=== PATIENT | female | born 1955 | race Caucasian/White ===

== ENCOUNTER → 2019-05-24 | Outpatient (CLI) | payer MEDICARE | END | disposition home or self-care (01) | LOC: LABPAT 12:27 | PROVIDERS: ATTEND Orthopaedic Surgery | DX: Z01.812 Encounter for preprocedural laboratory examination (principal) | CPT/HCPCS: 36415; 86850; 86900; 86901; 87070 ==

== ENCOUNTER 2019-05-31 08:00 | Inpatient (IN) | payer MEDICARE ==
--- NOTE | 2019-05-30 09:29 | HP ---
HISTORY AND PHYSICAL CHIEF COMPLAINT: Left hip pain. HISTORY OF PRESENT ILLNESS: The patient is a 64-year-old female who presents with progressive left hip pain for the past several years. It has worsened after recent fall. She is having thigh and groin pain, worse with weightbearing activities. She notes it significantly limits her. She does use a walker. PAST MEDICAL HISTORY: Significant for hypertension, Crohn's, hypothyroidism, and osteopenia. PAST SURGICAL HISTORY: Significant for appendectomy, carpal tunnel release, hysterectomy, partial thyroidectomy, shoulder surgery, and tonsillectomy. CURRENT MEDICATIONS: 1. Amlodipine. 2. Dicyclomine. 3. Lasix. 4. Gemfibrozil. 5. Levothyroxine. 6. Lisinopril. 7. Sulindac. 8. Zantac. ALLERGIES: She denies drug allergies. FAMILY HISTORY: Significant for cancer. SOCIAL HISTORY: Negative for current tobacco or alcohol use. REVIEW OF SYSTEMS: Sixteen point review of systems otherwise reviewed and is noncontributory. PHYSICAL EXAMINATION: On examination, the patient is approximately 5 feet 4 inches, 179 pounds of endomorphic habitus. HEENT exam is nonfocal. Neck is supple. Passive motion left hip flexion 80 degrees, external rotation with hip flex 45 degrees, internal rotation is -10 degrees with pain. Her distal neurovascular exam appears intact in the left lower extremity. X-rays to include AP and lateral views of the left hip obtained in the office show severe osteoarthrosis with flattening of the femoral head. IMPRESSION: Left hip severe osteoarthrosis-symptomatic. RECOMMENDATIONS: I talked to the patient at length regarding her condition along with treatment options. At this point she is quite limited because of pain related to her left hip osteoarthrosis. After thorough discussion, she opts to proceed with surgery. We will plan to proceed with left total hip arthroplasty utilizing an anterior approach. We will institute DVT prophylaxis postoperatively. MMODL / IJN: [id number] /
[~2019-05-31 08:00] MED LIST: ACETAMINOPHEN TAB 500 MG TAB PO ONE; DEXAMETHASONE SOD PHOSPHATE 10 MG/ML 1 ML VIAL IV ONE; LIDOCAINE 1% 20 ML VIAL (10MG/ML) FOR IV START INTRADERMA PRN; MELOXICAM 7.5 MG TAB PO ONE; MIDAZOLAM 2 MG/2 ML VIAL IV PRN; ONDANSETRON 4 MG/2 ML VIAL IVP ONE; SCOPOLAMINE 1.5MG/72HR PATCH TRANSDERM ONE; TRANEXAMIC ACID 1,000 MG in SODIUM CHLORIDE 0.9% 100 ML IVPB ONE
[2019-05-31] MEDS: LACTATED RINGERS 1,000 ML IV SCH (11:27)
[2019-05-31] MEDS ORDERED: ACETAMINOPHEN TAB 500 MG TAB PO ONE (11:28)
[2019-05-31] MEDS ORDERED: MELOXICAM 7.5 MG TAB PO ONE (11:28)
[2019-05-31] MEDS ORDERED: DEXAMETHASONE SOD PHOSPHATE 10 MG/ML 1 ML VIAL IV ONE (11:29)
[2019-05-31] MEDS ORDERED: ONDANSETRON 4 MG/2 ML VIAL IVP ONE (11:31)
[2019-05-31] MEDS ORDERED: SODIUM CHLORIDE 0.9% IRRIG 1,000 ML BTL IRRIGATION ONE (12:18)
[2019-05-31] MEDS ORDERED: SODIUM CHLORIDE 0.9% 100 ML BAG ONE (12:18)
[2019-05-31] MEDS ORDERED: MIDAZOLAM 2 MG/2 ML VIAL ONE (12:18)
[2019-05-31] MEDS ORDERED: PROPOFOL 10 MG/ML 20 ML VIAL IV ONE (12:18)
[2019-05-31] MEDS ORDERED: HEPARIN SODIUM,PORCINE 10,000 UNIT/ML 1 ML VIAL ONE (12:18)
[2019-05-31] MEDS ORDERED: fentaNYL (PF) 50 MCG/ML 2 ML AMP ONE (12:18)
[2019-05-31] MEDS ORDERED: diphenhydrAMINE 50 MG/ML 1 ML VIAL ONE (12:18)
[2019-05-31] MEDS ORDERED: TRANEXAMIC ACID 1,000 MG/10 ML VIAL ONE (12:18)
[2019-05-31] MEDS ORDERED: ceFAZolin 3,000 MG in SODIUM CHLORIDE 0.9% IRRIGATIO 3,000 ML IRRIGATION ONE (13:03)
[2019-05-31] MEDS ORDERED: traMADol 50 MG TAB PO PRN (14:02)
[2019-05-31] MEDS ORDERED: ACETAMINOPHEN TAB 325 MG TAB PO PRN (14:02)
[2019-05-31] MEDS ORDERED: HYDROcodone/APAP 5-325MG 1 EACH TAB PO PRN (14:02)
[2019-05-31] MEDS ORDERED: MAGNESIUM HYDROXIDE 2,400 MG/10 ML CUP PO PRN (14:02)
[2019-05-31] MEDS ORDERED: ONDANSETRON 4 MG/2 ML VIAL IVP PRN (14:02)
[2019-05-31] MEDS ORDERED: HYDROmorphone 0.5 MG/0.5 ML SYRINGE IVP PRN (14:02)
[2019-05-31] MEDS ORDERED: NALOXONE 0.4 MG/ML 1 ML VIAL IV PRN (14:02)
[2019-05-31] MEDS ORDERED: LACTATED RINGERS 1,000 ML IV ONE (14:11)
--- NOTE | 2019-05-31 14:28 | P.OP ---
Date of Procedure: 05/31/19 Preoperative Diagnosis: Severe left hip osteoarthrosis Postoperative Diagnosis: Same Procedure(s) Performed: Left total hip arthroplastypress-fitanterior approach Implants: Depuy Corail size 9 pressfit standard collared femoral stem, 32 mm +1 cobalt chrome femoral head, 52 mm [place] acetabular shell with neutral polyethylene liner. Anesthesia: spinal Surgeon: Ryley Katz Animal Husbandman #1: Antonio Mckeon Estimated Blood Loss (ml): 200 Pathology: other (Femoral head) Condition: stable Disposition: PACU Indications for Procedure: The patient's a 64-year-old female who presents with progressive left hip pain secondary to osteoarthrosis despite conservative measures. A discussion of the risks and benefits of operative intervention versus continued conservative measures made with patient. She opted to proceed with surgery. Operative risks to include infection, neurovascular injury, development of blood clots, possible fracture, leg length discrepancy, possible instability, and possible need for subsequent procedures was discussed. Informed consent was obtained. Operative Findings: As below Description of Procedure: The patient was brought to the operating room, and after induction of spinal anesthesia was placed supine on the [place]al table. Positioning was checked with fluoroscopy. The left hip was then prepped and draped in a normal fashion. A 12 cm incision was then made starting 2 fingerbreadths distal and 3 finger breaths posterior to the ASIS in line with the proximal femur. The skin was incised sharply. Subcutaneous tissues were divided sharply. Electrocautery was used for hemostasis. The fascia was split in line with skin incision. The interval between the sartorius and tensor fascia gonsalo was then bluntly developed. The posterior fascia was opened with electrocautery. The lateral circumflex vessels were identified and cauterized prior to sectioning. A retractor was placed along the superior femoral neck as well as the anterior acetabular rim. A wide capsulotomy was performed. The neck cut was then made at a 45 angle to the shaft approximately 1 1/2 cm above the level of the lesser trochanter. The head was extracted. Attention was then paid towards preparing the acetabular. Anterior and posterior retractors were placed. The remaining capsular labral tissue sharply debrided clearly defining the acetabular margins. I began reaming with a 45 mm reamer taking care to initially medialize then reaming at 45 of abduction and 20 of anteversion. Sequential reaming is performed up to to 51 mm. A trial 52 mm acetabular shell was inserted in the same orientation and was fully seated. There was good rim fit and stability. Positioning was checked with fluoroscopy. The final [] mm acetabular shell was inserted again at 45 of abduction and 20 of anteversion. This was fully seated. There was good rim fit and stability. I did place a 6.5 mm x 25 mm posterior superior cancellus screw with good purchase. Again fluoroscopy was used to check the adequacy of placement. A neutral polyethylene liner was gently impacted. Care was taken to avoid any soft tissue interposition. Pulsatile lavage was utilized. Attention was then paid towards preparing the proximal femur. The central region was cleared of soft tissue. A canal finder was used to find the femoral canal. Sequential broaching was performed up to size 9 taking care to lateralize proximally. A calcar mill was used to fashion the medial calcar. There was good rotational stability. A standard neck along with a 32 mm +1 head was placed. The hip was gently reduced. Fluoroscopy was used to check the adequacy of positioning along with leg lengths. I felt both were good. The hip was gently dislocated. The trial components were removed. The final size 9 collared standard press- fit femoral stem was inserted parallel to the posterior cortex. This was fully seated and there was good rotational stability. A 32 mm +1 cobalt chrome head was placed. This was gently impacted. The hip was then gently reduced. Final fluoroscopic view showed adequate placement implant along with hoahaoism of leg length. Stability was checked with 80 of external rotation and 60 of extension of the right hip. The wound was irrigated with sterile lavage. The fascia was closed with running 0 Vicryl suture. There was minimal drainage therefore a deep drain was not placed. The second dose of IV TXA was given. The subcutaneous tissues were reapproximated interrupted 2-0 Vicryl sutures. The skin was reapproximated with 3-0 subcuticular strata fix suture. Skin tape and adhesive was applied. A sterile dressing was applied. The patient was then awoken from sedation and transferred to recovery room in good condition. Blood loss was estimated at 200 mL. She did receive 62 mL of Cell Saver. No complications were incurred. Sponge and needle counts were correct at the end of the case. Hector CHAUHAN assisted during the major components is case to include exposure, bone resection, implantation, and closure.
--- NOTE | 2019-05-31 14:31 | XR ---
EXAMINATION TYPE: XR Hip Limited LT, FL guidance operating room DATE OF EXAM: 05/31/2019 CLINICAL HISTORY: Left hip arthroplasty TECHNIQUE: Fluoroscopy. COMPARISON: None. FINDINGS: Fluoroscopic guidance was provided during procedure performed by Dr. Katz. A total of 41 seconds of fluoroscopic time was utilized during the procedure and 1 spot images was acquired demons trating a left hip arthroplasty. IMPRESSION: As Above.
--- NOTE | 2019-05-31 14:47 | XR ---
EXAMINATION TYPE: XR Hip Limited LT DATE OF EXAM: 05/31/2019 COMPARISON: NONE HISTORY: Pain TECHNIQUE: One view submitted. FINDINGS: There is postsurgical change in near anatomic alignment. There is soft tissue edema and emphysema. IMPRESSION: 1. Postoperative change. Appears in near-anatomic alignment.
[2019-05-31] MEDS: HYDROmorphone 0.5 MG/0.5 ML SYRINGE IVP PRN ×2 (14:51→14:56)
[2019-05-31 15:23] VITALS: BMI 30.4
[2019-05-31] MEDS: HYDROcodone/APAP 5-325MG 1 EACH TAB PO PRN ×2 (16:44→21:48)
[2019-05-31 20:23] VITALS: RESP 18
[2019-05-31] MEDS ORDERED: SENNOSIDES-DOCUSATE SODIUM 1 EACH TAB PO SCH (21:00)
--- NOTE | 2019-05-31 22:11 | P.CONS ---
History of Present Illness - Reason for Consult Consult date: 05/31/19 Medical management Requesting physician: Ryley Katz - Chief Complaint Left hip pain - History of Present Illness Consultation: This is a 64-year-old patient of Dr. Niraj Monteiro. Chronic stable medical conditions include GERD, hypertension, hypothyroid, hiatal hernia, Crohn's disease. Patient also has osteoarthritis in other joints. Patient today underwent left total hip arthroplasty. Pain is controlled. No nausea vomiting. No chest pain no shortness of breath. Did tolerate her evening meal. Sitting on bed. No new issues. Review of systems: GEN.: None EYES: None HEENT: None NECK: None RESPIRATORY: None CARDIOVASCULAR: None GASTROINTESTINAL: None GENITOURINARY: None MUSCULOSKELETAL: Pain in the joints LYMPHATICS: None HEMATOLOGICAL: None PSYCHIATRY: None NEUROLOGICAL: None Social history: . Alcohol rarely. Does not smoke. Physical examination: VITAL SIGNS: 97.9, 66, 18, 125/78, 100% room air GENERAL: BMI 29.5, sitting up, comfortable. EYES: Pupils equal. Conjunctiva normal. HEENT: External appearance of nose and ears normal, oral cavity grossly normal. NECK: JVD not raised; masses not palpable. HEART: First and second heart sounds are normal; no edema. LUNGS: Respiratory rate normal; clear to auscultation. ABDOMEN: Soft, nontender, liver spleen not palpable, no masses palpable. PSYCH: Alert and oriented x3; mood and affect normal. NEUROLOGICAL: Cranial nerves grossly intact; no facial asymmetry, power and sensation grossly intact. LYMPHATICS: No lymph nodes palpable in the axilla and neck MUSCULAR skeletal: Dressing over the left hip. Evidence of OA is seen in the hands INVESTIGATIONS, reviewed in the clinical context: No labs Assessment: -Left total hip arthroplasty -GERD -Essential hypertension -Primary osteoarthritis -Hypothyroid -Crohn's disease -Hiatal hernia Plan: Home medications resumed. Getting IV fluids. Xarelto for DVT prophylaxis. Pain medications are in place. Care was discussed with the patient. Questions were answered. Thank you Dr. Ravi Past Medical History Past Medical History: GERD/Reflux, Hypertension, Osteoarthritis (OA), Thyroid Disorder Additional Past Medical History / Comment(s): Crohn's disease, has large hiatal hernia History of Any Multi-Drug Resistant Organisms: None Reported Past Surgical History: Adenoidectomy, Appendectomy, Cholecystectomy, Hysterectomy, Orthopedic Surgery, Tonsillectomy Additional Past Surgical History / Comment(s): partial thyroidectomy, CTS left, oophorectomy, cystoscopy, left rotator cuff repair Past Anesthesia/Blood Transfusion Reactions: No Reported Reaction Past Psychological History: No Psychological Hx Reported Smoking Status: Former smoker Past Alcohol Use History: Rare Additional Past Alcohol Use History / Comment(s): smoked as a teen Past Drug Use History: None Reported - Past Family History Sister(s) Family Medical History: Deep Vein Thrombosis (DVT) Brother(s) Family Medical History: Cancer Additional Family Medical History / Comment(s): Hodgkin's lymphoma Medications and Allergies Home Medications Medication Instructions Recorded Confirmed Type Acetaminophen [Tylenol Extra 500 mg PO Q6H PRN 05/25/19 05/31/19 History Strength] Calcium Carbonate [Calcium] 600 mg PO BID 05/25/19 05/31/19 History Cetirizine HCl [Zyrtec] 10 mg PO HS 05/25/19 05/31/19 History Dicyclomine [Bentyl] 20 mg PO TID 05/25/19 05/31/19 History Furosemide [Lasix] 40 mg PO DAILY 05/25/19 05/31/19 History Gemfibrozil [Lopid] 600 mg PO AC-BID 05/25/19 05/31/19 History Levothyroxine Sodium [Synthroid] 100 mcg PO DAILY 05/25/19 05/31/19 History Lisinopril [Zestril] 10 mg PO HS 05/25/19 05/31/19 History [place]-3 Fatty Acids/Fish Oil [Fish 1 cap PO DAILY 05/25/19 05/31/19 History Oil 1,000 mg Softgel] Ranitidine HCl [Zantac] 300 mg PO BID 05/25/19 05/31/19 History Sulindac [Clinoril] 200 mg PO BID 05/25/19 05/31/19 History amLODIPine [Norvasc] 10 mg PO DAILY 05/25/19 05/31/19 History Allergies Allergy/AdvReac Type Severity Reaction Status Date / Time adhesive tape AdvReac skin Verified 05/31/19 15:19 blisters Physical Exam Vitals: Vital Signs Temp Pulse Pulse Pulse Resp BP Pulse Ox 05/31/19 19:13 97.9 F 66 18 125/78 100 05/31/19 17:30 73 134/66 95 05/31/19 17:15 72 122/69 98 05/31/19 17:00 72 134/65 99 05/31/19 16:30 54 L 117/53 100 05/31/19 16:15 61 144/73 100 05/31/19 16:00 75 125/74 94 L 05/31/19 15:45 67 121/60 99 05/31/19 15:31 97.5 F L 67 16 127/60 98 05/31/19 15:00 65 16 142/67 100 05/31/19 14:45 58 L 16 121/80 05/31/19 14:30 67 18 122/69 97 05/31/19 14:23 98.1 F 87 14 128/66 95 05/31/19 11:11 97.4 F L 66 16 151/81 100 Intake and Output 05/31/19 05/31/19 05/31/19 06:59 14:59 22:59 Intake Total 1051 350 Output Total 200 Balance 851 350 Intake: IV 1051 200 Oral 150 Output: Estimated Blood Loss 200 Other: Voiding Method Urinal # Voids 1
[2019-06-01] MEDS: HYDROcodone/APAP 5-325MG 1 EACH TAB PO PRN ×3 (03:27→15:24)
[2019-06-01 07:44] VITALS: TEMP 98.1
[2019-06-01] MEDS: LACTATED RINGERS 1,000 ML IV SCH (08:15)
[2019-06-01] MEDS ORDERED: RIVAROXABAN 10 MG TAB PO SCH (09:00)
[2019-06-01 09:13] LABS: Basophils % (A) 0 %; Eosinophils % (A) 0 %; HCT 31.7 % (34.0-46.0); HGB 10.3 gm/dL (11.4-16.0); Lymphocytes # (A) 1.6 k/uL (1.0-4.8); Lymphocytes % (A) 21 %; MCH 28.6 pg (25.0-35.0); MCHC 32.5 g/dL (31.0-37.0); MCV 88.1 fL (80.0-100.0); Mean Platelet Volume 8.1; Monocytes # (A) 0.5 k/uL (0-1.0); Monocytes % (A) 7 %; Neutrophils # (A) 5.6 k/uL (1.3-7.7); Neutrophils % (A) 71 %; Platelet Count 235 k/uL (150-450); RDW 13.1 % (11.5-15.5); WBC 7.8 k/uL (3.8-10.6)
[2019-06-01 10:02] LABS: Poikilocytosis (M) Present
--- NOTE | 2019-06-01 10:38 | P.PN ---
Subjective Progress Note Date: 06/01/19 Principal diagnosis: Status post direct anterior total hip arthroplasty Patient evaluated at bedside, resting in a hospital chair. She's ambulated with therapy. Pain is well-controlled. She denies any chest pain or shortness of breath. Objective - Vital Signs Vital signs: Vital Signs Temp 98.1 F 06/01/19 07:00 Pulse 86 06/01/19 07:00 Resp 18 06/01/19 00:42 BP 97/47 06/01/19 07:00 Pulse Ox 97 06/01/19 07:00 Intake & Output 05/31/19 06/01/19 06/01/19 18:59 06:59 18:59 Intake Total 1401 130 Output Total 200 Balance 1201 130 Intake: IV 1251 Intake, IV Titration 130 Amount Lactated Ringers 1,000 ml 80 @ 40 mls/hr IV .Q24H EDEL Rx#:[id number] ceFAZolin 2 gm In Sodium 50 Chloride 0.9% 50 ml @ 100 mls/hr IVPB Q8H EDEL Rx#: [id number] Oral 150 Output: Estimated Blood Loss 200 Other: Voiding Method Urinal # Voids 1 1 - Exam Left lower extremity: Incision is clean, dry, and intact. The exofin fusion tape is in good condit ion. There is minimal soft tissue swelling and ecchymosis surrounding the medial and lateral aspects of the incision. Calf is soft, no tenderness with palpation. Plantar flexion, dorsiflexion, EHL, FHL are intact. Sensory exam to light touch throughout the extremity is intact, dorsal pedis pulses 2+. - Labs CBC & Chem 7: 06/01/19 07:38 Labs: Abnormal Lab Results - Last 24 Hours (Table) 06/01/19 Range/Units 07:38 RBC 3.60 L (3.80-5.40) m/uL Hgb 10.3 L (11.4-16.0) gm/dL Hct 31.7 L (34.0-46.0) % Assessment and Plan Plan: Assessment: Postoperative day #1 status post direct anterior left total hip arthroplasty Plan: Pain control, continue oral medication GI and DVT prophylaxis, plan for discharge home on Xarelto or Eliquis Wound care instructions discussed Home physical therapy and nursing after discharge Medical recommendations Discharge planning: Patient will likely discharged home today Time with Patient: Less than 30
--- NOTE | 2019-06-01 12:47 | P.DS ---
Providers Date of admission: 05/31/19 10:45 Expected date of discharge: 06/01/19 Attending physician: Ryley Katz Consults: 05/31/19 14:05 Consult Physician Routine Consulting Provider: Niraj Monteiro Consult Reason/Comments: Medical Management Do you want consulting provider notified?: Yes Primary care physician: Niraj Monteiro Hospital Course: Date of admission: 05/31/2019 Date of discharge: 06/01/2019 Admission diagnosis: Status post direct anterior left total hip arthroplasty Discharge diagnosis: Same Attending physician: Dr. Katz Surgical procedures: Direct anterior left total hip arthroplasty Brief history: Patient is a 64-year-old female with a history of progressive primary left hip osteoarthritis. At this point patient has failed conservative treatment measures and has opted to proceed with a elective direct anterior left total hip arthroplasty. Hospital course: Details of patient's surgery can be found in operative report. Patient tolerated the procedure well and was subsequently transported to orthopedic floor. Patient's orthopeidc and medical care was provided daily. Patient had daily laboratory tests performed for evaluation of overall blood counts. Patient had daily physical therapy to include strengthening range of motion as well as education with walker ambulation. Patient was treated with Xarelto for their postoperative DVT prophylaxis during their inpatient stay. Patient was noted to have a relatively uneventful postoperative course. Patient reported satisfactory pain control with oral pain medications by postoperative day 0. Patient showed satisfactory progress with physical therapy. Patient moved steadily through the program and had no difficulty meeting the goals by postoperative day 1. Given patient's otherwise satisfactory course and having met physical therapy goals, plan is to discharge patient home on postoperative day 1. Discharge condition/disposition: Patient will be discharged home in stable condition. Discharge medications: Instructions are given on resumption of patient's normal daily medications per primary care recommendation, in addition patient will be prescribed [place] 5 mg/325 mg, Eliquis 2.5mg. Discharge instructions: 1. Wound care and infection precautions, keep incision dry and covered while showering, no lotions, creams, moisturizers. No soaking, tubs, pools, hottubs. Do not scrub over the incision. 2. Weight-bear as tolerated] with walker / cane until follow-up. 3. Ice and elevate when necessary. Do not exceed 20 minutes per hour with ice pack. 4. Utilize compression sleeve until seen at first follow up appointment. 5. Visiting nursing care. 6. Home physical therapy. 7. Pain meds and anticoagulants per prescription. 8. Pain medication has potential to cause constipation. Increase oral fluid and fiber intake. Contact primary care provider if you have not had a bowel movement within 48 hours after discharge 9. No anti-inflammatory medication until discussed at first post operative visit, this including Motrin, Aleve, Mobic, Diclofenac. 10. Follow up in office at 2 weeks postop with Hector Mckeon PA-C 11. Follow up with your primary care doctor 7-10 days after discharge. 12. Contact [facility] with any questions, . Procedures: Direct anterior left total hip arthroplasty Patient Condition at Discharge: Good Plan - Discharge Summary Discharge Rx Participant: No New Discharge Prescriptions: New Hydrocodone/Acetaminophen [[place] 5-325] 1 - 2 each PO Q6HR PRN #40 tab PRN Reason: Pain Apixaban [Eliquis] 2.5 mg PO BID #60 tab Continue Ranitidine HCl [Zantac] 300 mg PO BID Lisinopril [Zestril] 10 mg PO HS Levothyroxine Sodium [Synthroid] 100 mcg PO DAILY Gemfibrozil [Lopid] 600 mg PO AC-BID Dicyclomine [Bentyl] 20 mg PO TID Sulindac [Clinoril] 200 mg PO BID [place]-3 Fatty Acids/Fish Oil [Fish Oil 1,000 mg Softgel] 1 cap PO DAILY Calcium Carbonate [Calcium] 600 mg PO BID Acetaminophen [Tylenol Extra Strength] 500 mg PO Q6H PRN PRN Reason: Pain Discontinued Cetirizine HCl [Zyrtec] 10 mg PO HS amLODIPine [Norvasc] 10 mg PO DAILY Furosemide [Lasix] 40 mg PO DAILY Discharge Medication List Acetaminophen [Tylenol Extra Strength] 500 mg PO Q6H PRN 05/25/19 [History] Calcium Carbonate [Calcium] 600 mg PO BID 05/25/19 [History] Dicyclomine [Bentyl] 20 mg PO TID 05/25/19 [History] Gemfibrozil [Lopid] 600 mg PO AC-BID 05/25/19 [History] Levothyroxine Sodium [Synthroid] 100 mcg PO DAILY 05/25/19 [History] Lisinopril [Zestril] 10 mg PO HS 05/25/19 [History] [place]-3 Fatty Acids/Fish Oil [Fish Oil 1,000 mg Softgel] 1 cap PO DAILY 05/25/19 [History] Ranitidine HCl [Zantac] 300 mg PO BID 05/25/19 [History] Sulindac [Clinoril] 200 mg PO BID 05/25/19 [History] Apixaban [Eliquis] 2.5 mg PO BID #60 tab 06/01/19 [Rx] Hydrocodone/Acetaminophen [[place] 5-325] 1 - 2 each PO Q6HR PRN #40 tab 06/01/19 [Rx] Follow up Appointment(s)/Referral(s): [facility], [NON-STAFF] - Antonio Mckeon PAC [PHYSICIAN OB/GYN NURSE] - 2 Weeks Activity/Diet/Wound Care/Special Instructions: Orthopedic Discharge Instructions: 1. Wound care and infection precautions, keep incision dry and covered while showering, no lotions, creams, moisturizers. No soaking, pools, hot tubs. Do not scrub over incision. 2. Weight-bear as tolerated with walker / cane until follow-up. 3. Ice and elevate when necessary. Do not exceed 20 minutes per hour with ice pack. 4. Utilize compression sleeve until seen at first follow up appointment. 5. Pain meds and anticoagulants per prescription. 6. Pain medication has potential to cause constipation. Increase oral fluid and fiber intake. Contact primary care provider if you have not had a bowel movement within 48 hours after discharge. 7. No anti-inflammatory medication until discussed at first post operative visit, this including Motrin, Aleve, Mobic, Diclofenac. 8. Follow up in office at 2 weeks postop with Hector Mckeon PA-C 9. Follow up with your primary care doctor 7-10 days after discharge. 10. Contact [facility] with any questions, . Discharge Disposition: HOME WITH HOME HEALTH SERVICES
[2019-06-01] MEDS ORDERED: FENOFIBRATE 160 MG TAB PO SCH (12:49)
[2019-06-01] MEDS ORDERED: FAMOTIDINE 20 MG TAB PO SCH (13:00)
[2019-06-01] MEDS ORDERED: LEVOTHYROXINE 100 MCG TAB PO SCH (13:00)
[2019-06-01] MEDS ORDERED: CALCIUM CARBONATE 500 MG CHEWABLE PO SCH (13:00)
[2019-06-01] MEDS ORDERED: DICYCLOMINE 20 MG TAB PO SCH (14:00)
[2019-06-01 14:05] VITALS: BP 146/64; PULSE 64
[2019-06-01] MEDS ORDERED: ETODOLAC 400 MG TAB PO SCH (16:00)
[2019-06-01] MEDS ORDERED: LISINOPRIL 10 MG TAB PO SCH (21:00)
--- NOTE | 2019-06-03 23:56 | P.PN ---
Progress Note - Text Progress Note Date: 06/01/19 - Chief Complaint Left hip pain Consultation: This is a 64-year-old patient of Dr. Niraj Monteiro. Chronic stable medical conditions include GERD, hypertension, hypothyroid, hiatal hernia, Crohn's disease. Patient also has osteoarthritis in other joints. underwent left total hip arthroplasty. Today-. Doing better. Return with some diet. Did work with therapy. No chest pain or short of breath. Review of systems: Was done for constitutional, cardiovascular, GI, pulmonary. relevant finding as above Current medications are reviewed from today's electronic records Physical examination: VITAL SIGNS: 98.1, 86, 16, 97 x 47, 97% room air GENERAL: BMI 29.5, sitting up, comfortable. EYES: Pupils equal. Conjunctiva normal. HEENT: External appearance of nose and ears normal, oral cavity grossly normal. NECK: JVD not raised; masses not palpable. HEART: First and second heart sounds are normal; no edema. LUNGS: Respiratory rate normal; clear to auscultation. ABDOMEN: Soft, nontender, liver spleen not palpable, no masses palpable. PSYCH: Alert and oriented x3; mood and affect normal. MUSCULAR skeletal: Dressing over the left hip. Evidence of OA is seen in the hands INVESTIGATIONS, reviewed in the clinical context: Hemoglobin 10.3 Assessment: -Left total hip arthroplasty -GERD -Essential hypertension -Primary osteoarthritis -Hypothyroid -Crohn's disease -Hiatal hernia Plan: Patient to check her blood pressure daily. Otherwise patient doing well. Follow with the family doctor. Care was discussed Thank you Dr. Ravi
== END 2019-06-01 15:47 | disposition home health service (06) | DRG 470 ==
LOC: 2ORMAIN 10:45 → 4SSUR 14:33
PROVIDERS: ADMIT Orthopaedic Surgery; ATTEND Orthopaedic Surgery
PROC: 30233N0 Transfusion of Autologous Red Blood Cells into Peripheral Vein, Percutaneous Approach (ICD-10-PCS; 2019-05-31)
PROC: 0SRB04A Replacement of Left Hip Joint with Ceramic on Polyethylene Synthetic Substitute, Uncemented, Open Approach (ICD-10-PCS; principal; 2019-05-31 12:10)
DX: M16.12 Unilateral primary osteoarthritis, left hip (principal); K50.90 Crohn's disease, unspecified, without complications; I10 Essential (primary) hypertension; E78.5 Hyperlipidemia, unspecified; E89.0 Postprocedural hypothyroidism; K44.9 Diaphragmatic hernia without obstruction or gangrene; K21.9 Gastro-esophageal reflux disease without esophagitis; M85.80 Other specified disorders of bone density and structure, unspecified site; G89.29 Other chronic pain; M79.672 Pain in left foot; J34.2 Deviated nasal septum; Z79.890 Hormone replacement therapy; Z79.899 Other long term (current) drug therapy; Z87.891 Personal history of nicotine dependence; Z90.710 Acquired absence of both cervix and uterus; Z90.49 Acquired absence of other specified parts of digestive tract; Z87.81 Personal history of (healed) traumatic fracture; Z90.722 Acquired absence of ovaries, bilateral; Z98.890 Other specified postprocedural states; Z77.22 Contact with and (suspected) exposure to environmental tobacco smoke (acute) (chronic); Z91.048 Other nonmedicinal substance allergy status; Z83.2 Family history of diseases of the blood and blood-forming organs and certain disorders involving the immune mechanism; Z80.7 Family history of other malignant neoplasms of lymphoid, hematopoietic and related tissues; Z80.8 Family history of malignant neoplasm of other organs or systems; Z82.49 Family history of ischemic heart disease and other diseases of the circulatory system; Z84.89 Family history of other specified conditions
CPT/HCPCS: 36415; 73501; 85025; 86850; 86891; 86900; 86901; 88300

== ENCOUNTER → 2019-07-19 | Outpatient (CLI) | payer MEDICARE ==
[2019-07-19 13:15] LABS: Basophils # (A) 0.1 k/uL (0-0.2); Basophils % (A) 1 %; Eosinophils # (A) 0.2 k/uL (0-0.7); Eosinophils % (A) 4 %; HCT 37.2 % (34.0-46.0); HGB 12.1 gm/dL (11.4-16.0); Lymphocytes # (A) 1.2 k/uL (1.0-4.8); Lymphocytes % (A) 32 %; MCH 28.2 pg (25.0-35.0); MCHC 32.4 g/dL (31.0-37.0); MCV 87.2 fL (80.0-100.0); Mean Platelet Volume 7.9; Monocytes # (A) 0.4 k/uL (0-1.0); Monocytes % (A) 10 %; Neutrophils # (A) 1.9 k/uL (1.3-7.7); Neutrophils % (A) 50 %; Platelet Count 257 k/uL (150-450); RBC 4.27 m/uL (3.80-5.40); RDW 13.6 % (11.5-15.5); WBC 3.7 k/uL (3.8-10.6)
[2019-07-19 13:30] LABS: Potassium 4.8 mmol/L (3.5-5.1)
[2019-07-19 13:35] LABS: Partial Thromboplastin Time 24.4 sec (22.0-30.0); Prothrombin Time 10.3 sec (9.0-12.0)
== END | disposition home or self-care (01) ==
LOC: LABPAT 12:35
PROVIDERS: ATTEND Orthopaedic Surgery
DX: Z01.812 Encounter for preprocedural laboratory examination (principal); M16.11 Unilateral primary osteoarthritis, right hip; Z79.01 Long term (current) use of anticoagulants
CPT/HCPCS: 36415; 80051; 85025; 85610; 85730; 87070

== ENCOUNTER 2019-07-26 07:09 | Inpatient (IN) | payer MEDICARE ==
--- NOTE | 2019-07-25 08:58 | HP ---
HISTORY AND PHYSICAL CHIEF COMPLAINT: Right hip pain. HISTORY OF PRESENT ILLNESS: The patient is a 64-year-old female who presents with progressive right hip pain for the past several years. It has worsened recently. She is having a difficult time with normal weightbearing activities. She recently underwent left total hip arthroplasty with good resolution of her symptoms. PAST MEDICAL HISTORY: Significant for hypertension, hypothyroidism, and osteoarthrosis. PAST SURGICAL HISTORY: Significant for appendectomy, carpal tunnel release, cholecystectomy, laparoscopy, partial thyroidectomy, previous shoulder surgery, left total hip arthroplasty, and tonsillectomy. FAMILY HISTORY: Significant for cancer. SOCIAL HISTORY: Negative for current tobacco or alcohol use. 16 POINT REVIEW OF SYSTEMS: Otherwise reviewed and is noncontributory. CURRENT MEDICATIONS: 1. Amlodipine. 2. Lasix. 3. Gemfibrozil. 4. Levothyroxine. 5. Lisinopril. 6. Sulindac. 7. Zantac. She denies drug allergies. PHYSICAL EXAMINATION: The patient is approximately 5 foot 4, 179 pounds of endomorphic habitus. HEENT: Exam is nonfocal. Neck is supple. Passive motion right hip, flexion 85 degrees, external rotation with the hip flexed 50 degrees with pain, internal rotation 0 degrees. Her distal neurovascular exam appears intact in the right lower extremity. X-rays to include AP of the pelvis obtained in the office show severe right hip osteoarthrosis with [id number] changes. IMPRESSION: Right hip osteoarthrosis-symptomatic. RECOMMENDATIONS: I talked to the patient at length regarding her condition along with treatment options. At this point, she is quite symptomatic because of pain related to her right hip osteoarthrosis. After thorough discussion, she opts to proceed with surgery. Will plan to proceed with right total hip arthroplasty. Risks and benefits were discussed at length in layman's terms. We will institute DVT prophylaxis postoperatively. MMODL / IJN: [id number] /
[2019-07-26] MEDS: LACTATED RINGERS 1,000 ML IV SCH (07:39)
[2019-07-26] MEDS ORDERED: PROPOFOL 10 MG/ML 20 ML VIAL IV ONE (08:00)
[2019-07-26] MEDS ORDERED: SODIUM CHLORIDE 0.9% 100 ML BAG ONE (08:00)
[2019-07-26] MEDS ORDERED: SODIUM CHLORIDE 0.9% IRRIG 1,000 ML BTL IRRIGATION ONE (08:00)
[2019-07-26] MEDS ORDERED: TRANEXAMIC ACID 1,000 MG/10 ML VIAL ONE (08:00)
[2019-07-26] MEDS ORDERED: PHENYLEPHRINE-0.9% NACL SYG 1 MG/10 ML SYRINGE ONE (08:00)
[2019-07-26] MEDS ORDERED: MIDAZOLAM 2 MG/2 ML VIAL ONE (08:00)
[2019-07-26] MEDS ORDERED: fentaNYL (PF) 50 MCG/ML 2 ML AMP ONE (08:00)
[2019-07-26] MEDS ORDERED: HEPARIN SODIUM,PORCINE 10,000 UNIT/ML 1 ML VIAL ONE (08:00)
[2019-07-26] MEDS ORDERED: MAGNESIUM HYDROXIDE 2,400 MG/10 ML CUP PO PRN (10:20)
[2019-07-26] MEDS ORDERED: HYDROcodone/APAP 5-325MG 1 EACH TAB PO PRN (10:20)
[2019-07-26] MEDS ORDERED: ONDANSETRON 4 MG/2 ML VIAL IVP PRN (10:20)
[2019-07-26] MEDS ORDERED: ACETAMINOPHEN TAB 325 MG TAB PO PRN (10:20)
[2019-07-26] MEDS ORDERED: NALOXONE 0.4 MG/ML 1 ML VIAL IV PRN (10:20)
--- NOTE | 2019-07-26 10:33 | P.OP ---
Date of Procedure: 07/26/19 Preoperative Diagnosis: Right hip severe osteoarthrosis Postoperative Diagnosis: Same Procedure(s) Performed: Right total hip arthroplastypress-fitanterior approach Implants: Depuy Corail size 8 standard press-fit collared femoral stem, 32+1 cobalt chrome femoral head, 50 mm [place] acetabular shell with neutral polyethylene liner. Anesthesia: spinal Surgeon: Ryley Katz Coil Taper #1: Antonio Mckeon Estimated Blood Loss (ml): 300 Pathology: other (Femoral head) Condition: stable Disposition: PACU Indications for Procedure: The patient's a 64-year-old female presents with progressive right hip pain secondary osteoarthrosis despite conservative measures. A discussion of the risks and benefits of operative intervention versus continued conservative measures was made patient. She opted to proceed with surgery. Operative risks to include infection, neurovascular injury, fracture, development of blood clots, possible leg length discrepancy, possible instability and need for subsequent procedures was discussed. Informed consent was obtained. Operative Findings: As below Description of Procedure: The patient was brought to the operating room, and after induction of spinal anesthesia was placed supine on the Opal table. Positioning was checked with fluoroscopy. The right hip was then prepped and draped in a normal fashion. A 12 cm incision was then made starting 2 fingerbreadths distal and 3 finger breaths posterior to the ASIS in line with the proximal femur. The skin was incised sharply. Subcutaneous tissues were divided sharply. Electrocautery was used for hemostasis. The fascia was split in line with skin incision. The interval between the sartorius and tensor fascia gonsalo was then bluntly developed. The posterior fascia was opened with electrocautery. The lateral circumflex vessels were identified and cauterized prior to sectioning. A retractor was placed along the superior femoral neck as well as the anterior acetabular rim. A wide capsulotomy was performed. The neck cut was then made at a 45 angle to the shaft approximately 1 1/2 cm above the level of the lesser trochanter. The head was extracted. Attention was then paid towards preparing the acetabular. Anterior and posterior retractors were placed. The remaining capsular labral tissue sharply debrided clearly defining the acetabular margins. I began reaming with a 43 mm reamer taking care to initially medialize then reaming at 45 of abduction and 20 of anteversion. Sequential reaming is performed up to 49 mm. A trial D mm acetabular shell was inserted in the same orientation and was fully seated. There was good rim fit and stability. Positioning was checked with fluoroscopy. The final the mm acetabular shell was inserted again at 45 of abduction and 20 of anteversion. This was fully seated. There was good rim fit and stability. Again fluoroscopy was used to check the adequacy of placement. A posterior superior 6.5 mm x 30 mm cancellus screw was inserted with good purchase. A neutral polyethylene liner was gently impacted. Care was taken to avoid any soft tissue interposition. Pulsatile lavage was utilized. Attention was then paid towards preparing the proximal femur. The central region was cleared of soft tissue. A canal finder was used to find the femoral canal. Sequential broaching was performed up to size 8 taking care to lateralize proximally. A small fracture line involving the medial calcar was noted. I placed a cerclage cable prophylactically and tensioned this appropriately.. A standard neck along with a 32 mm +1 trial head was placed. The hip was gently reduced. Fluoroscopy was used to check the adequacy of positioning along with leg lengths. I felt both were good. The hip was gently dislocated. The trial components were removed. The final size 8 collared standard press-fit femoral stem was inserted parallel to the posterior cortex. This was fully seated and there was good rotational stability. A 32 mm +1 cobalt chrome femoral head was placed. This was gently impacted. The hip was then gently reduced. Final fluoroscopic view showed adequate placement implant along with zoroastrian of leg length. Stability was checked with 80 of external rotation and 60 of extension of the right hip. The wound was irrigated with sterile lavage. The fascia was closed with running 0 Vicryl suture. There was minimal drainage therefore a deep drain was not placed. The second dose of IV TXA was given. The subcutaneous tissues were reapproximated interrupted 2-0 Vicryl sutures. The skin was reapproximated with 3-0 subcuticular strata fix suture. Skin tape and adhesive was applied. A sterile dressing was applied. The patient was then awoken from sedation and transferred to recovery room in good condition. Blood loss was estimated at 300 mL. 130 mL of Cell Saver was given back. No complications were incurred. Sponge and needle counts were correct at the end of the case. Hector CHAUHAN assisted during the major components is case to include exposure, bone resection, implantation, and closure.
--- NOTE | 2019-07-26 11:23 | XR ---
EXAMINATION TYPE: XR Hip Limited RT DATE OF EXAM: 07/26/2019 COMPARISON: None HISTORY: Post right hip replacement TECHNIQUE: AP right hip FINDINGS: Postsurgical changes are within the soft tissues Right femoral prosthesis and acetabular component is in place. Acute fracture is not identified. Ther e is a cerclage wire present. IMPRESSION: 1. No acute fractures identified post right hip replacement.
[2019-07-26] MEDS: HYDROmorphone 0.5 MG/0.5 ML SYRINGE IVP PRN ×4 (11:41→13:13)
[2019-07-26] MEDS ORDERED: KETOROLAC 30 MG/ML 1 ML VIAL IVP ONE (11:46)
[2019-07-26] MEDS ORDERED: diphenhydrAMINE 50 MG/ML 1 ML VIAL IVP ONE (11:46)
--- NOTE | 2019-07-26 12:10 | FL ---
Fluoroscopy INDICATION: Pain FINDINGS: Fluoroscopy time: 42 seconds. Images obtained: 1. IMPRESSIONS: 1. Documentation of fluoroscopy.
[2019-07-26] MEDS ORDERED: traMADol 50 MG TAB PO SCH (13:00)
[2019-07-26 14:55] VITALS: BMI 30.5
[2019-07-26] MEDS: HYDROcodone/APAP 5-325MG 1 EACH TAB PO PRN ×2 (15:00→20:09)
[2019-07-26] MEDS: FAMOTIDINE 20 MG TAB PO SCH (20:09)
[2019-07-26] MEDS: CALCIUM CARBONATE 500 MG CHEWABLE PO SCH (20:09)
--- NOTE | 2019-07-26 20:56 | P.CONS ---
History of Present Illness - Reason for Consult Consult date: 07/26/19 Medical management Requesting physician: Ryley Katz - Chief Complaint Hip surgery - History of Present Illness Consultation: This is a 64-year-old patient of Dr. Niraj Monteiro. Chronic stable medical conditions include GERD, hypertension, hypothyroid, hiatal hernia, Crohn's disease. Patient also has osteoarthritis . Patient has today undergone right total hip arthroplasty. Pain is controlled. Laying in bed. Watching television. No nausea vomiting. Did 8 some supper. Review of systems: GEN.: None EYES: None HEENT: None NECK: None RESPIRATORY: None CARDIOVASCULAR: None GASTROINTESTINAL: None GENITOURINARY: None MUSCULOSKELETAL: Pain in the joints LYMPHATICS: None HEMATOLOGICAL: None PSYCHIATRY: None NEUROLOGICAL: None Social history: . Alcohol rarely. Does not smoke. Physical examination: VITAL SIGNS: 97.9, 55, 12, 135/62, 99% room air GENERAL: BMI 29.5, laying in bed,, comfortable. EYES: Pupils equal. Conjunctiva normal. HEENT: External appearance of nose and ears normal, oral cavity grossly normal. NECK: JVD not raised; masses not palpable. HEART: First and second heart sounds are normal; no edema. LUNGS: Respiratory rate normal; clear to auscultation. ABDOMEN: Soft, nontender, liver spleen not palpable, no masses palpable. PSYCH: Alert and oriented x3; mood and affect normal. NEUROLOGICAL: Cranial nerves grossly intact; no facial asymmetry, power and sensation grossly intact. LYMPHATICS: No lymph nodes palpable in the axilla and neck MUSCULAR skeletal: Dressing over the right. Evidence of OA in the hands INVESTIGATIONS, reviewed in the clinical context: Labs from July 19 White count 3.7 hemoglobin 12.1 platelets 257 potassium 4.8 Assessment: -Right total hip arthroplasty -GERD -Essential hypertension -Primary osteoarthritis -Hypothyroid -Crohn's disease -Hiatal hernia Plan: Home medications resumed. Patient is on Xarelto for DVT prophylaxis. Care was discussed with the patient. Questions were answered Thank you Dr. Ravi Past Medical History Past Medical History: GERD/Reflux, Hyperlipidemia, Hypertension, Osteoarthritis (OA), Thyroid Disorder Additional Past Medical History / Comment(s): Crohn's disease, has large hiatal hernia, varicose veins, History of Any Multi-Drug Resistant Organisms: None Reported Past Surgical History: Adenoidectomy, Appendectomy, Cholecystectomy, Hysterectomy, Joint Replacement, Orthopedic Surgery, Tonsillectomy Additional Past Surgical History / Comment(s): partial thyroidectomy, Carpal tunnel- left, oophorectomy, cystoscopy, left rotator cuff repair, left hip replacement Past Anesthesia/Blood Transfusion Reactions: No Reported Reaction Additional Past Anesthesia/Blood Transfusion Reaction / Comm: claustrophobia Past Psychological History: No Psychological Hx Reported Smoking Status: Former smoker Past Alcohol Use History: Rare Additional Past Alcohol Use History / Comment(s): smoked as a teen Past Drug Use History: None Reported - Past Family History Sister(s) Family Medical History: Deep Vein Thrombosis (DVT) Additional Family Medical History / Comment(s): thrombocytopenia Brother(s) Family Medical History: Cancer Additional Family Medical History / Comment(s): Hodgkin's lymphoma Medications and Allergies Home Medications Medication Instructions Recorded Confirmed Type Acetaminophen [Tylenol Extra 500 mg PO Q6H PRN 05/25/19 07/20/19 History Strength] Calcium Carbonate [Calcium] 600 mg PO BID 05/25/19 07/20/19 History Dicyclomine [Bentyl] 20 mg PO TID 05/25/19 07/26/19 History Gemfibrozil [Lopid] 600 mg PO AC-BID 05/25/19 07/26/19 History Levothyroxine Sodium [Synthroid] 100 mcg PO DAILY 05/25/19 07/26/19 History Lisinopril [Zestril] 10 mg PO HS 05/25/19 07/26/19 History [place]-3 Fatty Acids/Fish Oil [Fish 1 cap PO DAILY 05/25/19 07/26/19 History Oil 1,000 mg Softgel] Ranitidine HCl [Zantac] 300 mg PO BID 05/25/19 07/26/19 History Sulindac [Clinoril] 200 mg PO BID 05/25/19 07/26/19 History Hydrocodone/Acetaminophen [[place] 1 - 2 each PO Q6HR PRN #40 tab 06/01/19 07/26/19 Rx 5-325] Allergies Allergy/AdvReac Type Severity Reaction Status Date / Time adhesive tape AdvReac skin Verified 07/26/19 07:29 blisters tramadol AdvReac Hallucinati Verified 07/26/19 07:29 ons Physical Exam Vitals: Vital Signs Temp Pulse Pulse Resp BP Pulse Ox 07/26/19 14:42 97.9 F 55 L 12 135/62 99 07/26/19 13:55 59 L 18 142/74 100 07/26/19 13:04 47 L 18 143/66 100 07/26/19 12:32 54 L 18 130/79 100 07/26/19 12:03 53 L 18 145/64 100 07/26/19 11:32 52 L 18 153/76 100 07/26/19 11:18 66 20 149/86 99 07/26/19 11:02 55 L 18 143/65 98 07/26/19 10:48 53 L 18 146/66 100 07/26/19 10:26 97.3 F L 69 16 116/62 98 07/26/19 07:25 98.5 F 72 16 135/87 100 Intake and Output 07/26/19 07/26/19 07/26/19 06:59 14:59 22:59 Intake Total 1350 Output Total 300 1000 Balance 1050 -1000 Intake: IV 1350 Output: Urine 1000 Estimated Blood Loss 300 Other: Voiding Method Toilet
[2019-07-26] MEDS ORDERED: SENNOSIDES-DOCUSATE SODIUM 1 EACH TAB PO SCH (21:00)
[2019-07-26] MEDS ORDERED: LISINOPRIL 10 MG TAB PO SCH (21:00)
[2019-07-26] MEDS: ETODOLAC 400 MG TAB PO SCH (21:44)
[2019-07-26] MEDS: DICYCLOMINE 20 MG TAB PO SCH (21:44)
[2019-07-27] MEDS: HYDROcodone/APAP 5-325MG 1 EACH TAB PO PRN ×3 (02:04→14:16)
[2019-07-27] MEDS: LACTATED RINGERS 1,000 ML IV SCH (04:30)
[2019-07-27] MEDS ORDERED: LEVOTHYROXINE 100 MCG TAB PO SCH (06:30)
[2019-07-27 07:45] LABS: Basophils % (A) 0 %; Eosinophils % (A) 1 %; HCT 30.1 % (34.0-46.0); Lymphocytes # (A) 1.2 k/uL (1.0-4.8); Lymphocytes % (A) 19 %; MCH 29.3 pg (25.0-35.0); Mean Platelet Volume 8.2; Monocytes # (A) 0.4 k/uL (0-1.0); Monocytes % (A) 6 %; Neutrophils # (A) 4.5 k/uL (1.3-7.7); Neutrophils % (A) 71 %; Platelet Count 169 k/uL (150-450); RBC 3.38 m/uL (3.80-5.40); RDW 13.6 % (11.5-15.5); WBC 6.3 k/uL (3.8-10.6)
[2019-07-27 07:46] LABS: HGB 9.9 gm/dL (11.4-16.0)
[2019-07-27] MEDS: CALCIUM CARBONATE 500 MG CHEWABLE PO SCH (08:40)
[2019-07-27] MEDS: ETODOLAC 400 MG TAB PO SCH (08:40)
[2019-07-27] MEDS: FAMOTIDINE 20 MG TAB PO SCH (08:40)
[2019-07-27 08:47] VITALS: BP 128/72; PULSE 70; RESP 16; TEMP 98
[2019-07-27] MEDS ORDERED: RIVAROXABAN 10 MG TAB PO SCH (09:00)
[2019-07-27] MEDS ORDERED: FENOFIBRATE 160 MG TAB PO SCH (09:00)
[2019-07-27] MEDS: DICYCLOMINE 20 MG TAB PO SCH (09:12)
--- NOTE | 2019-07-27 12:43 | P.PN ---
Subjective Progress Note Date: 07/27/19 Principal diagnosis: Status post direct anterior right total hip arthroplasty Patient evaluated at bedside, she is resting comfortably. Pain is well- controlled. She is ambulating well with therapy. Objective - Vital Signs Vital signs: Vital Signs Temp 98.0 F 07/27/19 08:47 Pulse 70 07/27/19 08:47 Resp 16 07/27/19 08:47 BP 128/72 07/27/19 08:47 Pulse Ox 100 07/27/19 08:47 Intake & Output 07/26/19 07/27/19 07/27/19 18:59 06:59 18:59 Intake Total 1350 200 150 Output Total 1300 Balance 50 200 150 Intake: IV 1350 Intake, IV Titration 50 Amount ceFAZolin 2 gm In Sodium 50 Chloride 0.9% 50 ml @ 100 mls/hr IVPB Q8HR EDEL Rx# :[id number] Oral 150 150 Output: Urine 1000 Estimated Blood Loss 300 Other: Voiding Method Toilet Toilet # Voids 3 - Exam Right lower extremity: Incision is clean, dry, and intact. The exofin fusion tape is in good cond ition. There is minimal soft tissue swelling and ecchymosis surrounding the medial and lateral aspects of the incision. Calf is soft, no tenderness with palpation. Plantar flexion, dorsiflexion, EHL, FHL are intact. Sensory exam to light touch throughout the extremity is intact, dorsal pedis pulses 2+. - Labs CBC & Chem 7: 07/27/19 07:16 Labs: Abnormal Lab Results - Last 24 Hours (Table) 07/27/19 Range/Units 07:16 RBC 3.38 L (3.80-5.40) m/uL Hgb 9.9 L D (11.4-16.0) gm/dL Hct 30.1 L (34.0-46.0) % Assessment and Plan Plan: Assessment: Postoperative day 1 status post right total hip arthroplasty Plan: Pain control, we'll discharge home on oral medication GI and DVT prophylaxis, Xarelto 10 mg daily for 28 days Wound care instructions discussed Home physical therapy and nursing after discharge Medical recommendations We'll discharge home today Time with Patient: Less than 30
--- NOTE | 2019-07-27 12:49 | P.DS ---
Providers Date of admission: 07/26/19 07:09 Expected date of discharge: 07/27/19 Attending physician: Ryley Katz Consults: 07/26/19 10:20 Consult Physician Routine Consulting Provider: Angel Luis Jordan Consult Reason/Comments: medical management Do you want consulting provider notified?: Yes Primary care physician: Niraj Monteiro Hospital Course: Date of admission: 07/26/2019 Date of discharge: 07/27/2019 Admission diagnosis: Status post direct anterior right total hip arthroplasty Discharge diagnosis: Same Attending physician: Dr. Del Castillo Surgical procedures: Direct anterior right total hip arthroplasty Brief history: Patient is a 64-year-old female with a history of has a primary right hip osteoarthritis. At this point patient has failed conservative treatment measures and has opted to proceed with a elective right total hip arthroplasty. Hospital course: Details of patient's surgery can be found in operative report. Patient tolerated the procedure well and was subsequently transported to orthopedic floor. Patient's orthopeidc and medical care was provided daily. Patient had daily laboratory tests performed for evaluation of overall blood counts. Patient had daily physical therapy to include strengthening range of motion as well as education with walker ambulation. Patient was treated with Xarelto for their postoperative DVT prophylaxis during their inpatient stay. Patient was noted to have a relatively uneventful postoperative course. Patient reported satisfactory pain control with oral pain medications by postoperative day 0. Patient showed satisfactory progress with physical therapy. Patient moved steadily through the program and had no difficulty meeting the goals by postoperative day 1. Given patient's otherwise satisfactory course and having met physical therapy goals, plan is to discharge patient home on postoperative day 1. Discharge condition/disposition: Patient will be discharged home in stable condition. Discharge medications: Instructions are given on resumption of patient's normal daily medications per primary care recommendation, in addition patient will be prescribed [place] 5 mg/325 mg, Xarelto 10 mg, ferrous sulfate 325 mg. Discharge instructions: 1. Wound care and infection precautions, keep incision dry and covered while showering, no lotions, creams, moisturizers. No soaking, tubs, pools, hottubs. Do not scrub over the incision. 2. Weight-bear as tolerated with walker / cane until follow-up. 3. Ice and elevate when necessary. Do not exceed 20 minutes per hour with ice pack. 4. Utilize compression sleeve until seen at first follow up appointment. 5. Visiting nursing care. 6. Home physical therapy 7. Pain meds and anticoagulants per prescription. 8. Pain medication has potential to cause constipation. Increase oral fluid and fiber intake. Contact primary care provider if you have not had a bowel movement within 48 hours after discharge 9. No anti-inflammatory medication until discussed at first post operative visit, this including Motrin, Aleve, Mobic, Diclofenac 10. Follow up in office at 2 weeks postop with Hector Mckeon PA-C 11. Follow up with your primary care doctor 7-10 days after discharge. 12. Contact [facility] with any questions, . Procedures: Direct anterior right total hip arthroplasty Patient Condition at Discharge: Good Plan - Discharge Summary Discharge Rx Participant: No New Discharge Prescriptions: New Ferrous Sulfate [Feosol] 325 mg PO DAILY #30 tab Hydrocodone/Acetaminophen [[place] 5-325] 1 - 2 each PO Q6HR PRN #40 tab PRN Reason: Pain Rivaroxaban [Xarelto] 10 mg PO DAILY #28 tab No Action Ranitidine HCl [Zantac] 300 mg PO BID Lisinopril [Zestril] 10 mg PO HS Levothyroxine Sodium [Synthroid] 100 mcg PO DAILY Gemfibrozil [Lopid] 600 mg PO AC-BID Dicyclomine [Bentyl] 20 mg PO TID Sulindac [Clinoril] 200 mg PO BID [place]-3 Fatty Acids/Fish Oil [Fish Oil 1,000 mg Softgel] 1 cap PO DAILY Calcium Carbonate [Calcium] 600 mg PO BID Acetaminophen [Tylenol Extra Strength] 500 mg PO Q6H PRN PRN Reason: Pain Hydrocodone/Acetaminophen [[place] 5-325] 1 - 2 each PO Q6HR PRN #40 tab PRN Reason: Pain Discharge Medication List Acetaminophen [Tylenol Extra Strength] 500 mg PO Q6H PRN 05/25/19 [History] Calcium Carbonate [Calcium] 600 mg PO BID 05/25/19 [History] Dicyclomine [Bentyl] 20 mg PO TID 05/25/19 [History] Gemfibrozil [Lopid] 600 mg PO AC-BID 05/25/19 [History] Levothyroxine Sodium [Synthroid] 100 mcg PO DAILY 05/25/19 [History] Lisinopril [Zestril] 10 mg PO HS 05/25/19 [History] [place]-3 Fatty Acids/Fish Oil [Fish Oil 1,000 mg Softgel] 1 cap PO DAILY 05/25/19 [History] Ranitidine HCl [Zantac] 300 mg PO BID 05/25/19 [History] Sulindac [Clinoril] 200 mg PO BID 05/25/19 [History] Hydrocodone/Acetaminophen [[place] 5-325] 1 - 2 each PO Q6HR PRN #40 tab 06/01/19 [Rx] Ferrous Sulfate [Feosol] 325 mg PO DAILY #30 tab 07/27/19 [Rx] Hydrocodone/Acetaminophen [[place] 5-325] 1 - 2 each PO Q6HR PRN #40 tab 07/27/19 [Rx] Rivaroxaban [Xarelto] 10 mg PO DAILY #28 tab 07/27/19 [Rx] Follow up Appointment(s)/Referral(s): [facility], [NON-STAFF] - As Needed Sourav Milan NPC [REFERRING] - 08/05/19 10:30 am Antonio Mckeon PAC [PHYSICIAN SYSTEM OPERATION SUPERINTENDENT] - 08/10/19 1:30 pm Activity/Diet/Wound Care/Special Instructions: Orthopedic Discharge Instructions: 1. Wound care and infection precautions, keep incision dry and covered while showering, no lotions, creams, moisturizers. No soaking, pools, hot tubs. Do not scrub over incision. 2. Weight-bear as tolerated with walker / cane until follow-up. 3. Ice and elevate when necessary. Do not exceed 20 minutes per hour with ice pack. 4. Utilize compression sleeve until seen at first follow up appointment. 5. Pain meds and anticoagulants per prescription. 6. Pain medication has potential to cause constipation. Increase oral fluid and fiber intake. Contact primary care provider if you have not had a bowel movement within 48 hours after discharge. 7. No anti-inflammatory medication until discussed at first post operative visit, this including Motrin, Aleve, Mobic, Diclofenac. 8. Follow up in office at 2 weeks postop with Hector Mckeon PA-C 9. Follow up with your primary care doctor 7-10 days after discharge. 10. Contact [facility] with any questions, . Discharge Disposition: HOME WITH HOME HEALTH SERVICES
--- NOTE | 2019-07-27 23:20 | P.PN ---
Progress Note - Text Progress Note Date: 07/27/19 Interval history: This is a 64-year-old patient of Dr. Niraj Monteiro. Chronic stable medical con ditions include GERD, hypertension, hypothyroid, hiatal hernia, Crohn's disease. Patient also has osteoarthritis . Patient has undergone right total hip arthroplasty. Today-sitting up. Feeling better. Did work with therapy. No new issues. Pain control. Breathing stable. No chest pain. No shortness of breath. Review of systems: Was done for constitutional, cardiovascular, GI, musculoskele suleman, pulmonary. relevant finding as above Current medications reviewed as reviewed in the today's s electronic medical records Physical examination: VITAL SIGNS: 98, 70, 16, 128/72, 100% room air GENERAL: Sitting up in a chair, comfortable. EYES: Pupils equal. Conjunctiva normal. HEENT: External appearance of nose ears normal, oral cavity grossly normal. NECK: JVD not raised; masses not palpable. HEART: First and second heart sounds are normal; no edema. LUNGS: Respiratory rate normal; clear to auscultation. ABDOMEN: Soft, nontender, liver spleen not palpable, no masses palpable. PSYCH: Alert and oriented x3; mood and affect normal. MUSCULAR skeletal: Dressing over the right. Evidence of OA in the hands INVESTIGATIONS, reviewed in the clinical context: Hemoglobin 9.9 Labs from July 19 White count 3.7 hemoglobin 12.1 platelets 257 potassium 4.8 Assessment: -Right total hip arthroplasty -Acute blood loss anemia as expected from surgery -GERD -Essential hypertension -Primary osteoarthritis -Hypothyroid -Crohn's disease -Hiatal hernia Plan: Patient is stable. Doing well. Should follow with his family doctor. Thank you Dr. Ravi
== END 2019-07-27 14:53 | disposition home health service (06) | DRG 470 ==
LOC: 2ORMAIN 07:09 → 4SSUR 13:55
PROVIDERS: ADMIT Orthopaedic Surgery; ATTEND Orthopaedic Surgery
PROC: 30233N0 Transfusion of Autologous Red Blood Cells into Peripheral Vein, Percutaneous Approach (ICD-10-PCS; 2019-07-26)
PROC: 0SR902A Replacement of Right Hip Joint with Metal on Polyethylene Synthetic Substitute, Uncemented, Open Approach (ICD-10-PCS; principal; 2019-07-26 08:00)
DX: M16.11 Unilateral primary osteoarthritis, right hip (principal); K50.90 Crohn's disease, unspecified, without complications; E89.0 Postprocedural hypothyroidism; E78.5 Hyperlipidemia, unspecified; F40.240 Claustrophobia; I10 Essential (primary) hypertension; K21.9 Gastro-esophageal reflux disease without esophagitis; K44.9 Diaphragmatic hernia without obstruction or gangrene; I83.90 Asymptomatic varicose veins of unspecified lower extremity; M81.0 Age-related osteoporosis without current pathological fracture; G89.29 Other chronic pain; M79.672 Pain in left foot; H53.8 Other visual disturbances; J34.2 Deviated nasal septum; Z79.890 Hormone replacement therapy; Z79.899 Other long term (current) drug therapy; Z96.642 Presence of left artificial hip joint; Z90.710 Acquired absence of both cervix and uterus; Z87.891 Personal history of nicotine dependence; Z90.49 Acquired absence of other specified parts of digestive tract; Z90.722 Acquired absence of ovaries, bilateral; Z80.7 Family history of other malignant neoplasms of lymphoid, hematopoietic and related tissues; Z83.49 Family history of other endocrine, nutritional and metabolic diseases; Z82.3 Family history of stroke; Z82.61 Family history of arthritis
CPT/HCPCS: 73501; 85025; 86850; 86891; 86900; 86901; 88300